=== PATIENT | female | born 1980 | race Caucasian/White ===

== ENCOUNTER 2019-11-06 02:59 | Emergency (ER) | payer BC, OTHER ==
[~2019-11-06] VITALS: Ht 170.2 cm; Wt 74.8 kg
[~2019-11-06 02:59] MED LIST: NAPROSYN500 MG PO; SINGULAIR 10 MG10 M1 PO
[2019-11-06] MEDS ORDERED: NAPROSYN500 MG PO (03:50)
[2019-11-06] MEDS ORDERED: TRAMADOL 50 MG50 MG PO (03:50)
[2019-11-06 04:21] VITALS: BP 164/95
== END 2019-11-06 07:48 | disposition home or self-care (01) ==
LOC: ER 02:59
DX: S62.615A Displaced fracture of proximal phalanx of left ring finger, initial encounter for closed fracture (principal); Z90.89 Acquired absence of other organs; X50.1XXA Overexertion from prolonged static or awkward postures, initial encounter; Y93.89 Activity, other specified; Y92.89 Other specified places as the place of occurrence of the external cause; Y99.9 Unspecified external cause status

== ENCOUNTER → 2019-11-20 | Outpatient (CLI) | payer OTHER ==
[~2019-11-20] MED LIST changes: +TRAMADOL 50 MG50 MG PO
== END ==
LOC: LAB 14:38
PROVIDERS: ATTEND Anesthesiology
DX: Z01.812 Encounter for preprocedural laboratory examination (principal); Z11.59 Encounter for screening for other viral diseases